=== PATIENT | male | born 1985 | race Caucasian/White ===

== ENCOUNTER 2016-07-30 11:50 | Emergency (ER) | payer OTHER ==
[2016-07-30 11:56] VITALS: BP 150/78; PULSE 65; TEMP 99; BMI 30.4
--- NOTE | 2016-07-30 12:53 | PDOC ---
History of Present Illness - General Chief Complaint: Ear Problem Stated Complaint: EAR PROBLEM Time Seen by Provider: 07/30/16 12:31 History Source: Patient Exam Limitations: No Limitations - History of Present Illness Initial Comments: 07/30/16 12:49 31-year-old male presents to the ED with foreign body to his right year. Patient states was cleaning his ear with a cotton tipped Q-tip when it broke off at the tip. Patient denies any ear pain, change in hearing, or any other complaints presently. Timing/Duration: 1 hour Severity: mild Associated Symptoms: reports: denies symptoms Past History - Past Medical History Allergies/Adverse Reactions: Allergies Allergy/AdvReac Type Severity Reaction Status Date / Time No Known Allergies Allergy Verified 07/30/16 11:56 Home Medications: Ambulatory Orders NK [No Known Home Medication] 07/30/16 Other medical history: denies - Psycho/Social/Smoking Cessation Hx Suicidal Ideation: No Smoking History: Never smoked Patient Lives Alone: No Lives with/in: spouse/SO Review of Systems - Review of Systems Able to Perform ROS?: Yes Constitutional: No: Symptoms Reported HEENTM: Yes: Other (foreign body to right ear) Integumentary: No: Symptoms Reported Neurological: No: Headache *Physical Exam - Vital Signs Last Vital Signs Temp Pulse Resp BP Pulse Ox 99 F 65 18 150/78 100 07/30/16 11:53 07/30/16 11:53 07/30/16 11:53 07/30/16 11:53 07/30/16 11:53 - Physical Exam General Appearance: Yes: Nourished, Appropriately Dressed. No: Apparent Distress HEENT: positive: Other (noted white fibrous material lodged in right ear canal.) Neck: positive: Supple Medical Decision Making - Medical Decision Making 07/30/16 12:50 Patient with foreign body to right ear. Removed using alligator forceps the cotton tip of the Q-tip. Ear canal intact. *DC/Admit/Observation/Transfer Diagnosis at time of Disposition: Foreign body of right ear Qualifiers: Encounter type: initial encounter Qualified Code(s): T16.1XXA - Foreign body in right ear, initial encounter - Discharge Dispostion Disposition: HOME Condition at time of disposition: Improved - Patient Instructions Printed Discharge Instructions: DI for Removal of Foreign Body From Ear Additional Instructions: Please do not let water get into ear x [address] anything in ear x 2 days
== END 2016-07-30 12:58 | disposition home or self-care (01) ==
LOC: JERFT 11:50
PROC: 09C37ZZ Extirpation of Matter from Right External Auditory Canal, Via Natural or Artificial Opening (ICD-10-PCS; principal; 2016-07-30)
DX: T16.1XXA Foreign body in right ear, initial encounter (principal); Y93.E8 Activity, other personal hygiene; Y92.038 Other place in apartment as the place of occurrence of the external cause
CPT/HCPCS: 69200-25; 99281-25